=== PATIENT | female | born 2005 | race Caucasian/White ===

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

== ENCOUNTER → 2025-06-01 | Outpatient (CLI) | payer OTHER, SELFPAY ==
--- NOTE | 2025-06-01 11:15 | LES_PTH ---
PATIENT: RONNI LEYVA LOC: [facility] U#:[id number] AGE/SX: 20/ ROOM: RE06/01/[address]: Dr. Paul Ruvalcaba MD : 2005 BED: DIS: 06/01/2025 SPEC #: [id number] RECD: 06/01/25 11:50 STATUS: MACK RELucila #: [id number] MILLY: 06/01/25 11:[address]: Paul Ruvalcaba DEPT: SURGICAL PATHOLOGY RECD BY: Shaji Rob ENTERED: 06/04/25 11:06 SP TYPE: Lesion OTHR DR: Dorie Lutz, PAM-Charly Tissues: A - Skin of nose, NOS Procedures: Surgery Specimen Level IV HEADER OPERATION: Biopsy of right side of nose PRE-OP DIAGNOSIS: Right nose biopsy TISSUE SUBMITTED: A- Nose - right side MICROSCOPIC DIAGNOSIS A. 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 MICROSCOPIC DESCRIPTION Slides are reviewed. GROSS DESCRIPTION A. Received in formalin labeled with the patient's name and date of . Designated as R side nose is a 0.3 x 0.3 x 0.2 cm thurman skin shave devoid of orientation. The resection margin is inked black, the specimen is bisected and entirely submitted in 1 cassette. [place] 06/04/2025 CPT:80222
== END | disposition home or self-care (01) ==
LOC: LABSPEC 12:46
PROVIDERS: PCP Nurse Practitioner Family; Referring Provider Surgery Plastic and Reconstructive Surgery; Visit Provider Surgery Plastic and Reconstructive Surgery
DX: D36.7 Benign neoplasm of other specified sites (principal)
CPT/HCPCS: 88305

== ENCOUNTER → 2025-06-14 | Outpatient (CLI) | payer OTHER, SELFPAY ==
--- NOTE | 2025-06-13 16:45 | MASS_PTH ---
PATIENT: RONNI LEYVA LOC: [facility] U#:[id number] AGE/SX: 20 ROOM: RE06/14/[address]: Dr. Paul Ruvalcaba MD : 2005 BED: DIS: 06/14/2025 SPEC #: [id number] RECD: 06/13/25 17:46 STATUS: MACK RELucila #: [id number] MILLY: 06/13/25 16:[address]: Paul Ruvalcaba DEPT: SURGICAL PATHOLOGY RECD BY: Shaji Rob ENTERED: 06/14/25 13:07 SP TYPE: Mass OTHR DR: Dorie Lutz, LOCOMOTIVE ENGINEER DIESELMariia Tissues: A - Arm, NOS Procedures: Surgery Specimen Level IV HEADER OPERATION: Left arm mass PRE-OP DIAGNOSIS: Left arm mass TISSUE SUBMITTED: A- Left arm mass MICROSCOPIC DIAGNOSIS A. Arm, left, mass, excision: - Benign pilomatrixoma (Calcifying Epithelioma of Malherbe). MICROSCOPIC DESCRIPTION Slides are reviewed. GROSS DESCRIPTION A. Received in formalin labeled with the patient's name and date of . Designated as left arm mass is a 0.9 x 0.5 x 0.5 cm thurman-pink to yellow, somewhat firm and focally ruptured soft tissue nodule surfaced by a 0.9 x 0.3 cm thurman skin ellipse devoid of orientation. Entirely submitted in 1 cassette. [place] 06/14/2025 CPT:74389
--- NOTE | 2025-06-13 16:45 | MASS_PTH ---
PATIENT: RONNI LEYVA LOC: [facility] U#:[id number] AGE/SX: 20 ROOM: RE06/14/[address]: Dr. Paul Ruvalcaba MD : 2005 BED: DIS: 06/14/2025 SPEC #: [id number] RECD: 06/13/25 17:46 STATUS: MACK RELucila #: [id number] MILLY: 06/13/25 16:[address]: Paul Ruvalcaba DEPT: SURGICAL PATHOLOGY RECD BY: Shaji Rob ENTERED: 06/14/25 13:07 SP TYPE: Mass OTHR DR: Dorie Lutz, TEXT TRANSCRIBERMariia Tissues: A - Arm, NOS Procedures: Surgery Specimen Level IV HEADER OPERATION: Left arm mass PRE-OP DIAGNOSIS: Left arm mass TISSUE SUBMITTED: A- Left arm mass MICROSCOPIC DIAGNOSIS A. Arm, left, mass, excision: - Benign pilomatrixoma (Calcifying Epithelioma of Malherbe). MICROSCOPIC DESCRIPTION Slides are reviewed. GROSS DESCRIPTION A. Received in formalin labeled with the patient's name and date of . Designated as left arm mass is a 0.9 x 0.5 x 0.5 cm thurman-pink to yellow, somewhat firm and focally ruptured soft tissue nodule surfaced by a 0.9 x 0.3 cm thurman skin ellipse devoid of orientation. Entirely submitted in 1 cassette. [place] 06/14/2025 CPT:92473
== END | disposition home or self-care (01) ==
LOC: LABSPEC 11:55
PROVIDERS: PCP Nurse Practitioner Family; Referring Provider Surgery Plastic and Reconstructive Surgery; Visit Provider Surgery Plastic and Reconstructive Surgery
DX: D23.62 Other benign neoplasm of skin of left upper limb, including shoulder (principal)
CPT/HCPCS: 88305